=== PATIENT | female | born 1945 | race Caucasian/White ===

== ENCOUNTER 2017-10-06 14:34 | Emergency (ER) | payer MEDICARE, OTHER ==
[~2017-10-06] VITALS: Ht 167.6 cm; Wt 88.5 kg
[2017-10-06] MEDS ORDERED: LEVSOD88 PO (16:26)
[2017-10-06] MEDS ORDERED: SIMV40 PO (16:26)
[2017-10-06] MEDS ORDERED: METO25ER PO (16:26)
[2017-10-06] MEDS ORDERED: FLONASE ALLERG9.9 ML NS (16:27)
[2017-10-06] MEDS ORDERED: ASPI81CH PO (16:27)
[2017-10-06] MEDS ORDERED: CYCL10 PO (16:27)
== END 2017-10-06 17:38 | disposition home or self-care (01) ==
LOC: ER 14:34
DX: S70.01XA Contusion of right hip, initial encounter (principal); S60.211A Contusion of right wrist, initial encounter; E78.5 Hyperlipidemia, unspecified; Z79.82 Long term (current) use of aspirin; E03.9 Hypothyroidism, unspecified; Z79.899 Other long term (current) drug therapy; W18.30XA Fall on same level, unspecified, initial encounter
CPT/HCPCS: 29125; 73110; 73502; 99283